=== PATIENT | male | born 1985 | race Caucasian/White ===

== ENCOUNTER → 2025-03-12 | Outpatient (CLI) | payer OTHER | END | disposition home or self-care (01) | LOC: MRI 16:30 | PROVIDERS: ATTEND Family Medicine | DX: M47.814 Spondylosis without myelopathy or radiculopathy, thoracic region (principal); M25.78 Osteophyte, vertebrae; M48.04 Spinal stenosis, thoracic region; M51.35 Other intervertebral disc degeneration, thoracolumbar region; S22.080S Wedge compression fracture of T11-T12 vertebra, sequela; X58.XXXD Exposure to other specified factors, subsequent encounter ==